=== PATIENT | female | born 1995 ===

== ENCOUNTER 2018-08-05 02:10 | Emergency (ER) | payer MEDICAID, MEDICARE ==
[2018-08-05 02:11] VITALS: BMI 34.1
[2018-08-05 02:25] VITALS: RESP 20
[2018-08-05] MEDS ORDERED: Naproxen 550 mg Tab PO STA (02:47)
[2018-08-05] MEDS ORDERED: Naproxen 550 mg Tab PO ONE (02:57)
[2018-08-05 02:59] LABS: HCG,QUALITATIVE URINE NEGATIVE (NEGATIVE)
[2018-08-05 03:00] LABS: SQUAMOUS EPITHIAL 18 /hpf (0-5); URINE BACTERIA RARE (<OCC); URINE BILIRUBIN NEGATIVE (NEGATIVE); URINE BLOOD NEGATIVE (NEGATIVE); URINE CLARITY Hazy (Clear); URINE COLOR Yellow (YELLOW); URINE GLUCOSE (UA) NORMAL (Normal); URINE LEUKOCYTE ESTERASE 1+ Leu/uL (Negative); URINE PROTEIN NEGATIVE (NEGATIVE)
--- NOTE | 2018-08-05 03:08 | C.PDOC ---
History Of Present Illness 23 year old female presents to the ER with a complaint of sore throat, body aches, nausea, vomiting, ear bocanegra, headache, nonproductive cough, and chills since yesterday. Denies sick contact or recent travel. Time Seen by Provider: 08/05/18 02:22 Chief Complaint (Nursing): ENT Problem History Per: Patient History/Exam Limitations: no limitations Onset/Duration Of Symptoms: Days (Yesterday) Current Symptoms Are (Timing): Still Present Recent travel outside of the [place]: No Past Medical History Reviewed: Historical Data, Nursing Documentation, Vital Signs Vital Signs: Last Vital Signs Temp 99.1 F 08/05/18 02:19 Pulse 107 H 08/05/18 02:19 Resp 20 08/05/18 02:19 BP 120/74 08/05/18 02:19 Pulse Ox 99 08/05/18 02:19 - Medical History PMH: Anxiety, Migraine Denies: Chronic Kidney Disease - [facility] Procedures INJECT/INFUSE ELECTROLYT (03/22/15) INJECT/INFUSE NEC (03/22/15) Family History: States: Unknown Family Hx - Social History Hx Alcohol Use: Yes Hx Substance Use: No - Immunization History Hx Tetanus Toxoid Vaccination: No Hx Influenza Vaccination: No Hx Pneumococcal Vaccination: No Review Of Systems Constitutional: Positive for: Chills ENT: Positive for: Ear Pain, Throat Pain Respiratory: Positive for: Cough Gastrointestinal: Positive for: Nausea, Vomiting Musculoskeletal: Positive for: Other (Body aches) Physical Exam - Physical Exam Appears: Non-toxic, Other (Coughing occasionally, Mild pain) Skin: Normal Color, Warm, Dry Head: Atraumatic, Normacephalic Eye(s): bilateral: Normal Inspection Nose: Normal Oral Mucosa: Moist Throat: Erythema (Mild), No Exudate Neck: Normal, Supple Chest: Symmetrical, No Tenderness Cardiovascular: Rhythm Regular Respiratory: Normal Breath Sounds, No Rales, No Rhonchi, No Wheezing Gastrointestinal/Abdominal: Soft, No Tenderness Back: No CVA Tenderness Extremity: Normal ROM (x4) Neurological/Psych: Oriented x3, Normal Speech ED Course And Treatment O2 Sat by Pulse Oximetry: 99 (Room air) Pulse Ox Interpretation: Normal Progress Note: Flu swab and urinalysis ordered, results were negative. Naproxen administered. Patient po challenged with success, will discharge home. Disposition Counseled Patient/Family Regarding: Studies Performed, Diagnosis, Need For Followup, Rx Given - Disposition Referrals: [facility] [Outside] Disposition: HOME/ ROUTINE Disposition Time: 03:10 Condition: STABLE Additional Instructions: FOLLOW UP WITH YOUR DOCTOR IN 1-2 DAYS USE MEDICATIONS NEEDED DRINK PLENTY OF FLUIDS RETURN TO EMERGENCY ROOM IF YOUR SYMPTOMS BECOME WORSE SEGUIR CON STONER MDICO EN 1-2 WELLS UTILICE MEDICAMENTOS DAVID SE NECESITE BEBER MUCHO LQUIDO REGRESE AL SALN DE EMERGENCIA SI TARAS SNTOMAS SE HACEN PEOR Prescriptions: Naproxen 375 mg PO BID PRN #20 tablet PRN Reason: pain Ondansetron ODT [Zofran ODT] 1 odt PO BID PRN #12 odt PRN Reason: Nausea/Vomiting Phenol/Glycerin [Chloraseptic Max [place]] 1 spray MM Q6 PRN #1 spray PRN Reason: THROAT PAIN Instructions: Viral Syndrome (DC) Forms: [employer] (Divehi) Print Language: BELIZEAN - Clinical Impression Clinical Impression: Viral syndrome - Scribe Statement The provider has reviewed the documentation as recorded by the Scribe Fidencio Zhou All medical record entries made by the Scribe were at my direction and personally dictated by me. I have reviewed the chart and agree that the record accurately reflects my personal performance of the history, physical exam, medical decision making, and the department course for this patient. I have also personally directed, reviewed, and agree with the discharge instructions and disposition.
[2018-08-05 03:14] VITALS: BP 122/75; PULSE 87; TEMP 99.5
[2018-08-05 06:45] VITALS: O2SAT 99
== END 2018-08-05 03:28 | disposition home or self-care (01) ==
LOC: C.ER 02:10
DX: B34.9 Viral infection, unspecified (principal)